=== PATIENT | female | born 1985 | race Caucasian/White ===

== ENCOUNTER 2017-02-17 20:02 | Emergency (ER) | payer MEDICAID ==
[~2017-02-17] VITALS: Ht 160 cm; Wt 81.6 kg
[2017-02-17 20:30] VITALS: BP_SYST 128
[2017-02-17] MEDS ORDERED: IBUPROFEN 800 MG TABLET PO ONE (20:45)
[2017-02-17] MEDS ORDERED: SULFAMETHOXAZOLE/TRIMETHOPR DS 1 TABLET PO ONE (20:45)
[2017-02-17 21:07] VITALS: BP_SYST 122
== END 2017-02-17 21:07 | disposition home or self-care (01) ==
LOC: SED 20:02
DX: N39.0 Urinary tract infection, site not specified (principal)
CPT/HCPCS: 81025; 99283

== ENCOUNTER 2017-02-21 12:46 | Emergency (ER) | payer MEDICAID ==
[~2017-02-21] VITALS: Ht 157.5 cm; Wt 81.6 kg
[2017-02-21 13:10] VITALS: BP_SYST 141
--- NOTE | 2017-02-21 14:00 | NUR ---
PT. PLACED IN ROOM 6, ASSUMED PT. CARE REPORT RECEIVED FROM RITO BANSAL
--- NOTE | 2017-02-21 14:10 | NUR ---
PT. TO ER FOR LEFT RIB PAIN AAOx4 STATES THAT THE PAIN IS NON RADIAITNG COMES AND GOE, STATES EARLIER IN THE DAY THE PAIN WAS 6/10 NO IT IS AT 2/10, DENIES N/V/D/ STATES NO HEADACHE, DENIES SOB OR CHEST PAIN,
--- NOTE | 2017-02-21 14:30 | NUR ---
DR. EDWARDS AT BEDSIDE EXAMINING THE PT.
--- NOTE | 2017-02-21 15:00 | NUR ---
PT. WAITING AND REATINF IN BED, INFORMED THAT SHE WILL BE MEDICATED PER MD ORDERS Addendum: 02/21/17 at 1542 by MARINE resting
[2017-02-21] MEDS ORDERED: MAG HYDROX/AL HYDROX/SIMETH 30 ML, LIDOCAINE VISCOUS 2% 15ML (PO) 10 ML, BELLADONNA ALK... PO ONE ×3 (15:15)
--- NOTE | 2017-02-21 15:20 | NUR ---
NOT AVAILABLE IN [facility], PHARMACY CALLED FOR REFIL
--- NOTE | 2017-02-21 15:40 | NUR ---
unable to locate the pt., pt. seems to have eloped
== END 2017-02-21 15:40 | disposition left against medical advice (07) ==
LOC: SED 12:46
DX: K21.9 Gastro-esophageal reflux disease without esophagitis (principal); Z53.20 Procedure and treatment not carried out because of patient's decision for unspecified reasons
CPT/HCPCS: 99281; J2001

== ENCOUNTER 2017-09-12 18:34 | Emergency (ER) | payer MEDICAID ==
[~2017-09-12] VITALS: Ht 160 cm; Wt 81.6 kg
[2017-09-12 20:10] VITALS: BP_SYST 134
== END 2017-09-12 20:10 | disposition home or self-care (01) ==
LOC: SED 18:34
DX: S93.401A Sprain of unspecified ligament of right ankle, initial encounter (principal); K21.9 Gastro-esophageal reflux disease without esophagitis; W01.0XXA Fall on same level from slipping, tripping and stumbling without subsequent striking against object, initial encounter; Y93.89 Activity, other specified; Y92.89 Other specified places as the place of occurrence of the external cause; Y99.8 Other external cause status
CPT/HCPCS: 81025; 99284